=== PATIENT | female | born 1965 | race Caucasian/White ===

== ENCOUNTER 2023-04-15 08:27 | Emergency (ER) | payer OTHER, BC ==
[2023-04-15] MEDS: Ondansetron 4 MG/2 ML SDV IVPUSH ONE (09:37)
[2023-04-15] MEDS: Morphine 4 MG/ML Syringe IVPUSH ONE (09:37)
[2023-04-15] MEDS: Sodium Chloride 0.9% 1,000 ML IV SCH (09:37)
[2023-04-15] MEDS: Sodium Chloride 0.9% 10 ML Syringe FLUSH PRN (09:37)
[2023-04-15 09:38] LABS: BASOPHILS PERCENT AUTO 0.5 % (0.0-1.0); EOSINOPHILS PERCENT AUTO 0.3 % (0.0-6.0); HEMATOCRIT 41.8 % (37.0-47.0); HEMOGLOBIN 14.2 gm/dl (12.0-16.0); IMMATURE GRAN ABSOLUTE AUTO 0.02 K/mm3 (0.00-0.05); IMMATURE GRAN PERCENT AUTO 0.3 % (0.0-0.4); LYMPHOCYTES ABSOLUTE AUTO 1.7 K/mm3 (1.0-4.8); LYMPHOCYTES PERCENT AUTO 25.2 % (24.0-44.0); MEAN CORPUSCULAR HEMOGLOBIN 31.2 pg (28.0-32.0); MEAN CORPUSCULAR VOLUME 91.9 fl (83.0-99.0); MONOCYTES ABSOLUTE AUTO 0.4 K/mm3 (0.0-0.8); MONOCYTES PERCENT AUTO 5.6 % (0.0-8.0); NEUTROPHILS ABSOLUTE AUTO 4.5 K/mm3 (1.8-7.7); NEUTROPHILS PERCENT AUTO 68.1 % (41.0-71.0); PLATELET COUNT,PLT 199 K/mm3 (150-400); RED BLOOD CELL COUNT 4.55 M/mm3 (4.10-5.30); WHITE BLOOD CELL COUNT,WBC 6.58 K/mm3 (3.9-11.3)
[2023-04-15 09:57] LABS: INR 2.11; PROTHROMBIN TIME 21.4 SECONDS (9.7-12.0)
[2023-04-15 10:06] LABS: A/G RATIO 1.2 (1-2); ALBUMIN 4.1 g/dl (3.4-5.0); ANION GAP 16.2 (5-15); BILIRUBIN TOTAL 0.3 mg/dL (0.2-1.0); BUN/CREATININE RATIO 15.7 (14-18); CALCIUM 9.4 mg/dL (8.5-10.1); CREATININE 0.7 mg/dL (0.55-1.02); EST CRCL DRUG DOSING (CG) 71.82 mL/min; POTASSIUM,K 4.2 mEq/L (3.5-5.1); PROTEIN TOTAL,TP 7.6 g/dl (6.4-8.2)
[2023-04-15] MEDS ORDERED: Clindamycin Phosphate in D5W 600 MG in Premix Bag 1 BAG IV ONE (11:32)
[2023-04-15] MEDS: Diphtheria,Pertussis(Acell),Tetanus Vaccine 0.5 ML Syringe IM ONE (12:24)
[2023-04-15] MEDS: Clindamycin Phosphate 600 MG in Dextrose 5% in Water 100 ML IV ONE (12:42)
== END 2023-04-15 13:20 ==
LOC: JD.ED 08:27
DX: S61.402A Unspecified open wound of left hand, initial encounter (principal); Z88.1 Allergy status to other antibiotic agents; X58.XXXA Exposure to other specified factors, initial encounter; Z23 Encounter for immunization
CPT/HCPCS: 36415; 73140; 80053; 85025; 85610; 90471; 90715; 96361; 96365; 96375; 99284; J2270; J2405; J3490; J7030; J7060